=== PATIENT | male | born 1995 | race Caucasian/White ===

== ENCOUNTER 2017-07-12 05:29 | Emergency (ER) | payer MEDICAID ==
[~2017-07-12] VITALS: Ht 175.3 cm; Wt 76.7 kg
[2017-07-12 06:02] VITALS: BP 123/58
== END 2017-07-12 06:02 | disposition home or self-care (01) ==
LOC: ED 05:29
DX: K21.9 Gastro-esophageal reflux disease without esophagitis (principal); J02.9 Acute pharyngitis, unspecified
CPT/HCPCS: Q0162